=== PATIENT | male | born 1970 | race African-American/Black ===

== ENCOUNTER → 2019-05-10 | Day surgery (SDC) | payer OTHER, MEDICARE ==
[2019-05-08 12:13] LABS: BASOPHILS % 0.5 % (0.0-1.0); EOSINOPHILS # (AUTO) 0.1 (0.0-0.4); EOSINOPHILS % 1.7 % (0.0-6.0); HEMATOCRIT 44.9 % (38.2-49.6); HEMOGLOBIN 15.2 g/dL (14.0-18.0); LYMPHOCYTES # (AUTO) 1.8 (1.0-3.2); LYMPHOCYTES % 27.5 % (18.0-39.1); MEAN CORPUSCULAR HEMOGLOBIN 32.5 pg (28-32); MEAN CORPUSCULAR HGB CONC 33.9 g/dL (31-35); MEAN CORPUSCULAR VOLUME 96.1 fL (81-99); MONOCYTES # (AUTO) 0.7 (0.2-0.8); NEUTROPHILS # (AUTO) 3.8 (2.1-6.9); NEUTROPHILS % 58.8 % (38.7-80.0); PLATELET COUNT 263 x10e3/uL (140-360); RED BLOOD COUNT 4.67 x10e6/uL (4.3-5.7); RED CELL DISTRIBUTION WIDTH 14.1 % (11.7-14.4)
[2019-05-08 12:23] LABS: INR 0.92; PROTHROMBIN TIME 12.8 seconds (11.9-14.5)
[2019-05-08 12:32] LABS: ALANINE AMINOTRANSFERASE 25 IU/L (0-55); ALBUMIN 4.4 g/dL (3.5-5.0); ALBUMIN/GLOBULIN RATIO 1.1 (0.8-2.0); ALKALINE PHOSPHATASE 82 IU/L (40-150); ANION GAP 13.9 mmol/L (8-16); BLOOD UREA NITROGEN 15 mg/dL (7-26); BUN/CREATININE RATIO 11 (6-25); CALCIUM 9.5 mg/dL (8.4-10.2); CARBON DIOXIDE 26 mmol/L (22-29); CHLORIDE 102 mmol/L (98-107); CREATININE, SERUM 1.39 mg/dL (0.72-1.25); EST GLOMERULAR FILTRATION RATE > 60 ML/MIN (60-); GLUCOSE 115 mg/dL (74-118); POTASSIUM 3.9 mmol/L (3.5-5.1); SODIUM 138 mmol/L (136-145)
--- NOTE | 2019-05-08 13:58 | NUR ---
Left message for Dr. Kulkarni regarding abnormal creatinine.
--- NOTE | 2019-05-08 14:11 | NUR ---
Dr. Kulkarni called back and notified of creatinine 1.39. No new orders at this time.
[~2019-05-10] VITALS: Ht 190.5 cm; Wt 131.5 kg
[2019-05-10] VITALS (10 sets, daily range): BP systolic 122–140; BP diastolic 63–91
[~2019-05-10] MED LIST: ASPIR 8181 MG PO; CARVEDILOL3.125 MG PO; CRESTOR10 MG PO; ENTRESTO PO; FENTANYL CITRATE/PF 100MCG/2 ML INJ ONE; FUROSEMIDE40 MG PO; GABAPENTIN300 MG PO; HEPARIN SOD (PORCINE) 1000 UNIT/ML 30ML ONE; HEPARIN SOD/SOD CHLORIDE 2,000 ML ONE; IOPAMIDOL 370 MG/ML 200 ML INFUS..BTL INJ ONE; LIDOCAINE HCL 2% LOCAL 20 ML VIAL ONE; MIDAZOLAM HCL 2 MG/2 ML VIAL ONE; POTASSIUM CHLO10 MEQ PO; SODIUM CHLORIDE 0.9% 1000ML 1,000 ML ONE; SPRYCEL70 MG PO; VERAPAMIL HCL 2.5 MG/ML 2 ML VIAL ONE
--- NOTE | 2019-05-10 14:55 | NUR ---
Patient ambulated to restroom with steady gait. Patient void without difficulty. Patient awake,alert, and oriented x3. Respirations even and unlabored on room air. Patient ambulated up and down the hallway. Dressing to right groin is clean,dry, and intact and soft upon palpation. Right groin dressing appears to be without signs or symptoms of active bleeding at this time. Dressing to right wrist is clean, dry and intact. Fernandez wrap applied to right wrist as reminder to not use wrist. Patient and patient's instructed to remove fernandez wrap morning after procedure. Patient and patient's verbalized understanding and had no questions at this time. IV to left hand 20 gauge removed and dressing applied per protocol. Dressing to left hand is clean,dry, and intact. Patient discharged to private vehicle via wheelchair with as wheelchair. Patient discharged with belongings. Patient appears to be in no signs of acute distress at time of discharge.
--- NOTE | 2019-05-10 17:23 | Operative Report ---
DATE OF PROCEDURE: 05/10/2019 SURGEON: Marii Kulkarni MD PROCEDURE PERFORMED: 1. Selective coronary angiography x2. 2. Left heart catheterization. 3. Angiography of the right common iliac artery. SEDATION: 1. Fentanyl 125 mcg. 2. Versed 5 mg. CONSENT: Informed consent was obtained and documented in the chart. INDICATION: 1. Abnormal nuclear stress test. 2. Chronic systolic heart failure. PROCEDURE IN DETAIL: The patient was brought to the cardiac catheterization laboratory in a fasting state after written and informed consent was obtained. Bilateral groins and right wrist were prepped and draped in the usual sterile fashion. A 1% lidocaine was infiltrated over the right wrist to achieve local anesthesia. The right radial artery was accessed via micropuncture needle and a 5-Montserratian long sheath was placed via modified Seldinger technique. A 5-Montserratian TIG was inserted and advanced over the J-wire to the ascending aorta. The left main coronary artery was cannulated under fluoroscopic guidance. Selective coronary angiography was performed due to inability to engage the right coronary artery. The TIG was removed and a 5-Montserratian 3DRC was inserted and advanced into the ascending aorta. The right coronary artery could not be cannulated and a 5-Montserratian multipurpose was attempted. This was also unsuccessful. The multipurpose was removed, bilateral groins and in the right. Attention was turned to the right groin. A 1% lidocaine was used to achieve local anesthesia over the right common femoral artery. A 5-Montserratian micropuncture needle was used to access the right common femoral artery and a 5-Montserratian sheath was inserted via modified Seldinger technique. The 5-Montserratian 3DRC was inserted and advanced into the ascending aorta. The right coronary artery was engaged under fluoroscopic guidance. Selective coronary angiography was performed. The 3DRC was exchanged for a 5-Montserratian pigtail, which was inserted and advanced into the ascending aorta and left ventricle. Hemodynamic measurements were obtained. The pigtail was removed and angiogram was performed of the right common iliac system through the sheath. A 5-Montserratian femoral catheter was removed and Mynx closure device was used to achieve hemostasis. The radial sheath was then removed and TR band was placed. There were no immediate procedure complications. FINDINGS: 1. The left main artery is large and trifurcates into left anterior descending, ramus, and circumflex arteries. The left anterior descending is a large caliber vessel that wraps around the apex. There was no angiographic evidence of disease. 2. The ramus is a large branching vessel without evidence of disease. 3. The circumflex is a medium caliber vessel without angiographic evidence of coronary artery disease. 4. The right coronary artery is a large caliber vessel that supplies the PDA. There is no evidence of coronary artery disease. 5. LV 132/14, LVEDP 27 mmHg. There was no gradient on pullback. IMPRESSION: 1. No coronary artery disease. 2. Nonischemic cardiomyopathy. RECOMMENDATIONS: Aggressive risk factor modification and continuation of optimal heart failure therapy. Marii Kulkarni MD ABS/MODL /[id number]
== END | disposition home or self-care (01) ==
LOC: CATH LAB 08:45
PROVIDERS: ATTEND Internal Medicine
DX: I25.10 Atherosclerotic heart disease of native coronary artery without angina pectoris (principal); R94.39 Abnormal result of other cardiovascular function study; I42.8 Other cardiomyopathies; I11.0 Hypertensive heart disease with heart failure; I50.22 Chronic systolic (congestive) heart failure; C92.10 Chronic myeloid leukemia, BCR/ABL-positive, not having achieved remission; Z01.812 Encounter for preprocedural laboratory examination; Z79.82 Long term (current) use of aspirin; Z68.36 Body mass index [BMI] 36.0-36.9, adult; Z82.49 Family history of ischemic heart disease and other diseases of the circulatory system
CPT/HCPCS: 36415; 80053; 85025; 85610; 93458; J1644; J2001; J2250; J3010; J7030; Q9967

== ENCOUNTER → 2020-01-14 | Outpatient (CLI) | payer OTHER, MEDICARE ==
[~2020-01-14] MED LIST changes: -FENTANYL CITRATE/PF 100MCG/2 ML INJ ONE; -HEPARIN SOD (PORCINE) 1000 UNIT/ML 30ML ONE; -HEPARIN SOD/SOD CHLORIDE 2,000 ML ONE; -IOPAMIDOL 370 MG/ML 200 ML INFUS..BTL INJ ONE; -LIDOCAINE HCL 2% LOCAL 20 ML VIAL ONE; -MIDAZOLAM HCL 2 MG/2 ML VIAL ONE; -SODIUM CHLORIDE 0.9% 1000ML 1,000 ML ONE; -VERAPAMIL HCL 2.5 MG/ML 2 ML VIAL ONE
--- NOTE | 2020-01-14 13:35 | Diagnostic Imaging Report ---
Chest, 2 views, 01/14/2020. History: Shortness of breath. Comparison: None available. Findings: The cardiomediastinal silhouette and pulmonary vasculature are within normal limits. Linear opacities are present at the right lung base with minimal blunting of the right costophrenic sulcus. Left lung is clear. There are no acute osseous or soft tissue abnormalities. Impression: Bibasilar atelectasis with minimal right pleural effusion. Signed by: Scott Nick on 01/14/2020 1:31 PM
== END ==
LOC: RAD 12:58
PROVIDERS: ATTEND Internal Medicine
DX: R06.00 Dyspnea, unspecified (principal)
CPT/HCPCS: 71046

== ENCOUNTER → 2020-03-14 | Outpatient (CLI) | payer OTHER, MEDICARE ==
--- NOTE | 2020-03-14 13:43 | Diagnostic Imaging Report ---
CT of the chest, without contrast. History: Dyspnea. Comparison: Chest radiograph from 01/14/2020. Technique: Multidetector CT scanning of the chest was performed from the level of the apices to the upper abdomen without contrast. Coronal and sagittal multiplanar reformations were obtained. RADIATION DOSE: Total DLP: 543.45 mGy*cm Dose modulation, iterative reconstruction, and/or weight based adjustment of the mA/kV was utilized to reduce the radiation dose to as low as reasonably achievable. FINDINGS: The thyroid and remaining visualized structures within the base of the neck demonstrate no significant abnormalities. The thoracic aorta is normal in course and caliber. The heart is not enlarged. A physiologic amount of pericardial fluid is noted. There is no abnormal axillary, mediastinal, or hilar lymph node enlargement. The trachea and proximal airways are patent. There is a moderate sized right pleural effusion with associated compressive atelectasis of the adjacent right lower lobe. The additional scattered areas of subsegmental atelectasis noted within the right lung. There is no evidence for consolidation, mass, or suspicious nodule, noting suboptimal evaluation of the compressed right lower lobe. There is no evidence for pneumothorax. A 1.0 cm hypodensity is identified within the left hepatic lobe which is not definitively characterized on this noncontrast enhanced examination. The remaining visualized upper abdominal contents demonstrate no significant abnormalities. The osseous structures demonstrate no evidence for acute fracture or destructive process. The extrathoracic soft tissues are unremarkable. IMPRESSION: Moderate sized, simple appearing right pleural effusion with associated compressive atelectasis of the right lower lobe. Signed by: Dr. Cheko Harley MD on 03/14/2020 1:39 PM
== END ==
LOC: CT 10:48
PROVIDERS: ATTEND Internal Medicine
DX: R06.00 Dyspnea, unspecified (principal)
CPT/HCPCS: 71250